=== PATIENT | male | born 1995 | race Caucasian/White ===

== ENCOUNTER 2019-11-17 02:17 | Emergency (ER) | payer OTHER, SELFPAY ==
[2019-11-17 02:45] VITALS: BP 138/83; PULSE 83; RESP 16; TEMP 36.8; O2SAT 98; BMI 24.3
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
[2019-11-17 04:25] VITALS: BP 132/83; PULSE 82; RESP 15; O2SAT 98
== END 2019-11-17 04:26 | disposition home or self-care (01) ==
PROVIDERS: Emergency Provider Emergency Medicine
DX: S00.83XA Contusion of other part of head, initial encounter (principal); S09.93XA Unspecified injury of face, initial encounter; Y04.2XXA Assault by strike against or bumped into by another person, initial encounter
CPT/HCPCS: 70450; 70486; 99281; 99284